=== PATIENT | male | born 1965 | race African-American/Black ===

== ENCOUNTER 2019-10-26 18:15 | Inpatient (IN) ==
[2019-10-26] MEDS ORDERED: ASPIRIN PO ONE (18:30)
[2019-10-26 18:47] LABS: BASO# 0.01 X1000 (0.0-0.2); BASO% 0.2 % (0.0-0.8); EOS# 0.01 X1000 (0.0-0.7); EOS% 0.2 % (0.0-10.0); HEMATOCRIT 48.2 % (42.0-52.0); HEMOGLOBIN 15.9 g/dL (14.0-18.0); IMM GRAN# 0.03 X1000 (0.0-0.04); IMM GRAN% 0.5 % (0.0-0.5); LYMPH# 1.44 X1000 (1.2-3.4); LYMPH% 22.3 % (20.5-51.1); MCH 30.3 PG (27-31); MCV 91.8 FL (81-99); MONO% 13.9 % (1.7-9.3); MPV 9.8 FL (7.4-10.4); NEUT# 4.08 X1000 (1.4-6.5); NEUT% 62.9 % (42.2-75.2); PLT 223 X1000 (130-400); RBC 5.25 XMIL (4.7-6.1); RDW 14.4 % (11.5-14.5); WBC 6.47 X1000 (4.8-10.8)
[2019-10-26 19:06] LABS: INR 0.94; PTT 25.2 Seconds (22.3-41.8)
[2019-10-26 19:09] LABS: AGAP 17; ALBUMIN 4.7 g/dL (3.5-5.0); ALKALINE PHOSPHATASE 54 U/L (32-122); BUN 15 mg/dL (8-22); CHLORIDE 98 mmol/L (98-107); CK PROFILE 36 U/L (24-204); COSMO 277; CREATININE 0.8 mg/dL (0.7-1.2); ESTIMATED GFR > 60; GLUCOSE 112 mg/dL (70-104); GOT 10 U/L (10-34); GPT 5 U/L (10-44); POTASSIUM 3.9 mmol/L (3.5-5.1); SODIUM 138 mmol/L (136-145); TCO2 23 mmol/L (25-35); TOTAL PROTEIN 7.2 g/dL (6.3-8.3)
--- NOTE | 2019-10-26 19:35 | Diag Imaging Result Doc PS360 ---
EXAM: CHEST-1 VIEW INDICATION: cp TECHNIQUE: One view COMPARISON: 10/05/2019 FINDINGS: Inspiration is somewhat suboptimal. There is suggestion of mild left basilar atelectasis. The right lung is clear. There is no discrete pleural fluid collection or pneumothorax. The cardiomediastinal silhouette and central vasculature are grossly unremarkable. IMPRESSION: Suggestion of mild left basilar atelectasis. No definite acute pathology, otherwise. Electronically signed by Neto Dowling 10/26/2019 7:33 PM
--- NOTE | 2019-10-26 20:16 | PROVIDER DOCUMENTATION ---
HPI-Chest Pain - General Chief Complaint: Chest Pain Stated Complaint: SOB/DIZZINESS Time Seen by Provider: 10/26/19 18:30 Allergies/Adverse Reactions: Patient Allergies Allergy/AdvReac Type Severity Reaction Status Date / Time No Known Allergies Allergy Verified 10/26/19 18:48 Home Medications: Home Medication List Medication Instructions Recorded Confirmed Last Taken Type Cyclobenzaprine [Flexeril] 10 mg PO PRN PRN 04/03/17 10/27/19 1 Week Ago History ~07/09/18 Omeprazole [Prilosec] 40 mg PO DAILY 04/03/17 10/27/19 07/11/18 History Telmisartan 80 mg PO DAILY 04/03/17 10/27/19 07/15/18 08:00 History Ibuprofen 800 mg PO Q8H PRN PRN #30 tab 10/05/19 10/27/19 Unknown Rx Bisoprolol/Hctz [Ziac 5/6.25 mg] 1 tab PO DAILY 10/27/19 10/27/19 Unknown History Clonazepam 0.5 mg PO DAILY PRN 10/27/19 10/27/19 Unknown History Meclizine [Antivert] 12.5 mg PO TID PRN 10/27/19 10/27/19 Unknown History Prednisone 20 mg PO DAILY 10/27/19 10/27/19 Unknown History - History of Present Illness-CP Nature of Presenting Problem: pt 54yo AAM w c/o intermittent sub sternal Cp w dyspnea on exertion for past month, pt states the pain became worse and more frequent over past few days. Location: reports: substernal Chest Pain Radiation: reports: no radiation Quality of Pain: reports: aching, pressure Severity in ED: moderate Onset/Duration: other (last month) Timing: still present, intermittent Context/Activities at Onset: reports: light activity Modifying Factors: improves with: nothing Nitro Today/Relief: no nitro taken today Aspirin Treatment Today: provided by ED Prior Chest Pain/Cardiac Workup: reports: other (has appointment with burr filer for similar episode over past month) Similar Symptoms Previously?: Yes Recently Seen Here or By Another Healthcare Provider: No Review of Systems - Adult - REVIEW OF SYSTEMS - ADULT Constitutional: reports: no symptoms reported Eyes: reports: no symptoms reported Ears, Nose, Mouth & Throat: reports: no symptoms reported Cardiovascular: reports: see HPI Respiratory: reports: see HPI Gastrointestinal: reports: no symptoms reported Genitourinary: reports: no symptoms reported Musculoskeletal: reports: no symptoms reported Integumentary: reports: no symptoms reported Neurological: reports: no symptoms reported Psychiatric: reports: no symptoms reported Endocrine: reports: no symptoms reported Hematologic/Lymphatic: reports: no symptoms reported Allergic/Immunologic: reports: no symptoms reported All Other Systems: Reviewed and Negative Past History - Adult - PAST MEDICAL HISTORY-ADULT Review of Records: reports: Old Records Reviewed, Nursing Assessment Review, Medications Reviewed Major Childhood Illnesses: reports: denies history Cardiovascular: reports: HTN, hyperlipidemia Respiratory: reports: denies history Gastrointestinal: reports: denies history - IMMUNIZATION STATUS Childhood Immunizations: See Nurse Assessment Flu Vaccine: See Nurse Assessment - FAMILY HISTORY Family History: reviewed, not pertinent - SOCIAL HISTORY Smoking: denies Substance Use: none/never Alcohol Use Frequency: never Physical Exam-General - PHYSICAL EXAM-ADULT Initial Vital Signs Reviewed: Yes - CONSTITUTIONAL General Appearance: appears well, alert, mild distress - EYES Eyes: PERRL/EOMI, pink conjunctivae. negative: sclera injected - HEAD, EARS, NOSE, MOUTH & THROAT HENMT: normocephalic/atraumatic, moist mucous membranes, normal ENT inspection - NECK Neck: non-tender, full range of motion, supple - RESPIRATORY Respiratory: chest non-tender, lungs clear, normal breath sounds - CARDIOVASCULAR Cardiovascular: normal peripheral pulses, regular rate, rhythm, no edema - GASTROINTESTINAL (ABDOMEN) Abdominal Exam: normal bowel sounds, non tender, soft - LYMPHATIC Lymphatic: no adenopathy - MUSCULOSKELETAL Back Exam: normal inspection Extremity: normal range of motion, non-tender - SKIN Integumentary: normal color, normal turgor, warm/dry - NEUROLOGIC Neurologic: grossly normal, no motor/sensory deficits - PSYCHIATRIC Psych/Mental Status: normal mood/affect, normal thought content, normal thought process, oriented x 3 - HEART Score HEART Score: History: Moderately Suspicious HEART Score: ECG: Non-Specific Repolarization Disturbance/LBBB/PM HEART Score: Age: 45-65 Years HEART Score: Risk Factors for Atherosclerotic Disease: 1 or 2 Risk Factors HEART Score: Troponin: < or = Normal Limit Total HEART Score:: 4 Progress - PLAN OF CARE/RESULTS Progress/Plan/Lab Results: Vital Signs - 8 hr 10/26/19 18:22 10/26/19 22:07 10/27/19 00:18 Temperature 98 F Pulse Rate 84 63 56 L Respiratory Rate 18 30 H Blood Pressure 126/97 174/102 O2 Sat by Pulse Oximetry 95 98 10/27/19 00:21 Temperature Pulse Rate 60 Respiratory Rate 19 Blood Pressure 146/97 O2 Sat by Pulse Oximetry 99 Laboratory Results - last 24 hr 10/26/19 10/26/19 10/26/19 18:40 18:40 18:40 WBC 6.47 RBC 5.25 Hgb 15.9 Hct 48.2 MCV 91.8 MCH 30.3 MCHC 33.0 RDW Std Deviation 14.4 Plt Count 223 MPV 9.8 Immature Gran % (Auto) 0.5 Neut % (Auto) 62.9 Lymph % (Auto) 22.3 [place] % (Auto) 13.9 H Eos % (Auto) 0.2 Baso % (Auto) 0.2 Immature Gran # (Auto) 0.03 Neut # (Auto) 4.08 Lymph # (Auto) 1.44 [place] # (Auto) 0.90 H Eos # (Auto) 0.01 Baso # (Auto) 0.01 PT INR PTT (Actin FS) D-Dimer, Quantitative Sodium 138 Potassium 3.9 Chloride 98 Carbon Dioxide 23 L Anion Gap 17 BUN 15 Creatinine 0.8 Estimated GFR/1.73 m2 > 60 BUN/Creatinine Ratio 19 Glucose 112 H Calculated Osmolality 277 Calcium 10.0 Total Bilirubin 1.40 H AST 10 ALT 5 L Alkaline Phosphatase 54 Creatine Kinase 36 Troponin T High Sens Skq-B-Plwgmbgppjv Pept 75 Total Protein 7.2 Albumin 4.7 Globulin 3.0 Albumin/Globulin Ratio 2.0 10/26/19 10/26/19 10/26/19 18:40 18:40 20:03 WBC RBC Hgb Hct MCV MCH MCHC RDW Std Deviation Plt Count MPV Immature Gran % (Auto) Neut % (Auto) Lymph % (Auto) [place] % (Auto) Eos % (Auto) Baso % (Auto) Immature Gran # (Auto) Neut # (Auto) Lymph # (Auto) [place] # (Auto) Eos # (Auto) Baso # (Auto) PT 13.0 INR 0.94 PTT (Actin FS) 25.2 D-Dimer, Quantitative 1.62 H Sodium Potassium Chloride Carbon Dioxide Anion Gap BUN Creatinine Estimated GFR/1.73 m2 BUN/Creatinine Ratio Glucose Calculated Osmolality Calcium Total Bilirubin AST ALT Alkaline Phosphatase Creatine Kinase Troponin T High Sens 12 Yic-T-Vnjihtkulvm Pept Total Protein Albumin Globulin Albumin/Globulin Ratio 10/26/19 22:23 WBC RBC Hgb Hct MCV MCH MCHC RDW Std Deviation Plt Count MPV Immature Gran % (Auto) Neut % (Auto) Lymph % (Auto) [place] % (Auto) Eos % (Auto) Baso % (Auto) Immature Gran # (Auto) Neut # (Auto) Lymph # (Auto) [place] # (Auto) Eos # (Auto) Baso # (Auto) PT INR PTT (Actin FS) D-Dimer, Quantitative Sodium Potassium Chloride Carbon Dioxide Anion Gap BUN Creatinine Estimated GFR/1.73 m2 BUN/Creatinine Ratio Glucose Calculated Osmolality Calcium Total Bilirubin AST ALT Alkaline Phosphatase Creatine Kinase Troponin T High Sens 11 Gql-Y-Justmignivr Pept Total Protein Albumin Globulin Albumin/Globulin Ratio Orders Category Date Time Status Admit - [facility] Routine AdmDCTranf 10/27/19 00:18 Active Activity - Bed Rest with BRP ORDERED Care 10/27/19 00:18 Active Cardiac Monitoring DIRECTED Care 10/26/19 18:30 Active Neurological Check PRN Care 10/27/19 00:18 Active Oxygen Therapy- ED Nursing DIRECTED Care 10/26/19 18:30 Active Resuscitation Status Routine Care 10/26/19 23:46 Ordered Saline Loc DIRECTED Care 10/27/19 00:18 Active Saline Loc NOW Care 10/26/19 18:30 Active Vital Signs Order ROUTINE Care 10/27/19 00:18 Active Z-Document. for Tele Applied ORDERED Care 10/27/19 00:18 Active Heart Healthy Diet Diet 10/27/19 00:18 Active CHEST-1 VIEW [RAD] Stat Exams 10/26/19 19:08 Completed CTA [CT ANGIOGRM PULMONARY ARTERIES] [CT] Stat Exams 10/26/19 21:06 Taken CBC WITH ELECTRONIC DIFF [HEME] Stat Lab 10/26/19 18:40 Completed CK PROFILE [SP CHEM] Stat Lab 10/26/19 18:40 Completed COMPREHENSIVE METABOLIC PANEL [CHEM] Stat Lab 10/26/19 18:40 Completed D-DIMER [COAG] Stat Lab 10/26/19 20:03 Completed PRO B-NATRIURETIC PEPTIDE Stat Lab 10/26/19 18:40 Completed PROTIME WITH INR [COAG] Stat Lab 10/26/19 18:40 Completed PTT [COAG] Stat Lab 10/26/19 18:40 Completed TROPONIN T HIGH SENSITIVITY Stat Lab 10/26/19 18:40 Completed TROPONIN T HIGH SENSITIVITY Stat Lab 10/26/19 22:23 Completed TROPONIN T HIGH SENSITIVITY Stat Lab 10/27/19 02:00 Uncollected Acetaminophen [Tylenol] Med 10/26/19 23:47 Discontinued 650 mg PO NOW ONE Acetaminophen [Tylenol] Med 10/27/19 00:18 Active 650 mg PO Q6H PRN PRN Albuterol 2.5MG/Ipratrop 0.5MG [Duoneb (A & A)] Med 10/27/19 00:18 Active 3 ml INH Q2H PRN PRN Aspirin Med 10/26/19 18:30 Discontinued 325 mg PO NOW ONE Ondansetron [Zofran] Med 10/27/19 00:18 Active 4 mg IV Q4H PRN PRN Aerosol Treatments Routine Oth 10/27/19 00:18 Active Aerosol Treatments Stat Oth 10/27/19 00:18 Active CP/SOB/Palp >45 yrs of Age Stat Oth 10/26/19 18:30 Ordered Oxygen Device Routine Oth 10/27/19 00:18 Active Telemetry [OM.EQ] Routine Oth 10/27/19 00:18 Active EKG [EKG] Stat Ther 10/26/19 18:30 Draft EKG [EKG] Stat Ther 10/26/19 22:09 Draft EKG [EKG] Stat Ther 10/27/19 02:00 Ordered Transfer/Admit Order [TRANSFER] Routine Transfer 10/26/19 23:46 Completed discussed with patient admission to the hospital for CP obs. pt agred with POC and verbalized understanding. Result Diagrams: 10/26/19 18:40 10/26/19 18:40 - XRAY 1 XRAY Study: Chest Impression: Normal - CT/MRI 1 CT Study: Angiogram Impression: Normal - CONSULTS/PCP/HOSPITALIST Notification #1 *Consult/PCP/Hospitalist*: marcelle Time Discussed: 00:00 Reason/Comments: admit to [facility] Consult Disposition: Admit Departure - Departure Date of Disposition Decision: 10/27/19 Time of Disposition Decision: 01:25 DIAGNOSIS: Chest pain Disposition: ADMITTED INPATIENT 09 Certified Medical Emergency: Emergent Condition: Stable Referrals and Follow-Ups: Estrellita Cleaning [Primary Care Provider] - - Critical Care Note This patient required my direct & personal management of CC.: No Attestation - Physician/ SOLIS Attestation Patient care was provided by Advanced Practice Provider:: Yes Advanced Practice Provider:: Nancy Pop Advanced Practice Provider documentation review:: The Mid-level provider documentation, treatment plan and medical decision making was reviewed by the physician who agrees with all treatment and medical decision making by the MLP. The physician spent face to face time with patient:: No Advanced Practice Provider documentation review:: Supervising physician onsite a nd consulted in the evaluation and care of this patient. The physician did not have a face to face encounter with the patient.
--- NOTE | 2019-10-26 21:55 | EKG Report ---
Test Performed on : 10/26/2019 6:33:34 PM Test Reason : cp Blood Pressure : / mmHG Vent. Rate : 073 BPM Atrial Rate : 073 BPM P-R Int : 122 ms QRS Dur : 106 ms QT Int : 382 ms P-R-T Axes : 063 -07 036 degrees QTc Int : 420 ms Sinus rhythm. with marked sinus arrhythmia. Voltage criteria for left ventricular hypertrophy Abnormal ECG When compared with ECG of 05-OCT-2019 03:11, (Unconfirmed) Criteria for Septal infarct are no longer present Unconfirmed Result
[2019-10-26] MEDS ORDERED: TYLENOL PO ONE (23:47)
--- NOTE | 2019-10-26 23:54 | EKG Report ---
Test Performed on : 10/26/2019 10:51:44 PM Test Reason : cp Blood Pressure : / mmHG Vent. Rate : 064 BPM Atrial Rate : 064 BPM P-R Int : 130 ms QRS Dur : 106 ms QT Int : 400 ms P-R-T Axes : 033 -05 025 degrees QTc Int : 412 ms Sinus rhythm. with marked sinus arrhythmia. Voltage criteria for left ventricular hypertrophy Abnormal ECG When compared with ECG of 26-OCT-2019 18:33, (Unconfirmed) No significant change was found Unconfirmed Result
[2019-10-27] MEDS ORDERED: ZOFRAN IV PRN (00:18)
--- NOTE | 2019-10-27 04:07 | EKG Report ---
Test Performed on : 10/27/2019 04:07:44 AM Test Reason : CP Blood Pressure : / mmHG Vent. Rate : 057 BPM Atrial Rate : 057 BPM P-R Int : 130 ms QRS Dur : 102 ms QT Int : 428 ms P-R-T Axes : 055 -06 023 degrees QTc Int : 416 ms Sinus bradycardia. with sinus arrhythmia. Voltage criteria for left ventricular hypertrophy Abnormal ECG When compared with ECG of 26-OCT-2019 22:51, (Unconfirmed) No significant change was found Unconfirmed Result
--- NOTE | 2019-10-27 05:08 | Diag Imaging Result Doc PS360 ---
EXAM: CT ANGIOGRM PULMONARY ARTERIES HISTORY: r/o PE TECHNIQUE: CT chest with intravenous contrast. Pulmonary arterial protocol with MIP images. COMPARISON: None. FINDINGS: There is normal opacification of the pulmonary arteries and their major branches. No aortic aneurysm or dissection. The heart is mildly prominent. No pleural effusions. No enlarged lymph nodes. Mild vascular distention. No infiltrates. No bronchiectasis. IMPRESSION: 1.No pulmonary emboli 2.Mild cardiac prominence with minimal vascular distention. 3.A preliminary report was given at 10:36 PM on 10/26/2019 This exam was performed using automated exposure control, adjustment of mA or kV according to patient size, and/or use of iterative reconstruction technique. Electronically signed by Joseph Ross 10/27/2019 5:05 AM
[2019-10-27] MEDS: DUONEB (A & A) INH PRN ×3 (08:47→19:51)
[2019-10-27] MEDS: ZIAC 5/6.25 MG PO SCH (09:01)
[2019-10-27] MEDS: TYLENOL PO PRN (14:40)
[2019-10-27] MEDS ORDERED: PNEUMOVAX 23 IM ONE (14:48)
[2019-10-27] MEDS ORDERED: NICODERM PATCH TD SCH (15:15)
--- NOTE | 2019-10-27 16:11 | Vascular Study Report ---
EXAM: Venous U/S Bilateral Legs HISTORY: elevated ddimer, dyspnea, CP TECHNIQUE: Bilateral lower extremity venous Doppler ultrasound COMPARISON: None. FINDINGS: Right: Normal flow in the veins of the right lower extremity. No thrombus identified. Normal compression. Left: Normal flow in the veins of the left lower extremity. No thrombus identified. Normal compression. IMPRESSION: No deep venous thrombosis identified Electronically signed by Joseph Ross 10/27/2019 4:09 PM
--- NOTE | 2019-10-27 17:06 | HISTORY AND PHYSICAL ---
CHIEF COMPLAINT: Intermittent chest pain, shortness of breath with a productive cough. HISTORY OF PRESENT ILLNESS: This is a 54-year-old gentleman with a prior history of hypertension who presents to the emergency room complaining of substernal chest pain with shortness of breath on exertion for the past month. He did state that over the past few days this is increased along with a productive cough. Chest x-ray revealed left basilar atelectasis prompting his visit to the emergency room. He denied any fevers or chills, any syncope or dizziness, any diaphoresis. PAST MEDICAL HISTORY: Hypertension, hyperlipidemia, anxiety, chronic dizziness, gastroesophageal reflux disease. PAST SURGICAL HISTORY: Hernia repair. FAMILY HISTORY: Cancer, hypertension, coronary artery disease. SOCIAL HISTORY: He is single. He denies any alcohol, tobacco, or illicit drug use. ALLERGIES: No known drug allergies. HOME MEDICATIONS: A list will be obtained by the nursing staff and once verified review and restart as appropriate. REVIEW OF SYSTEMS: Discussed with patient with pertinent positives stated in the HPI. He denied any syncope, any palpitations, any fevers or chills, any nausea, vomiting, diarrhea, constipation, black or bloody vomitus or stools, hematuria, dysuria, frequency urgency. PHYSICAL EXAMINATION: GENERAL: This is a 54-year-old gentleman who is sitting up on the stretcher in the emergency room in no distress. VITAL SIGNS: Blood pressure is 145/90 with a heart rate of 80, respirations are 20, temperature is 98.6 degrees with O2 saturations 97 to 99% on 2 L nasal cannula. HEENT: Pupils equal, round, react to light. EOMs are intact sclerae anicteric. Head is normocephalic, atraumatic. Mucous membranes moist. NECK: Supple with trachea midline. CARDIOVASCULAR: Regular rate and rhythm, S1 and S2 appreciated. He has no lower extremity edema. Calves are nontender bilateral with peripheral pulses palpable x4 extremities. PULMONARY: Breath sounds are clear. No increased work of breathing noted. Chest rises and falls symmetric respiration. GASTROINTESTINAL: Abdomen soft, nontender, nondistended with bowel sounds in all 4 quadrants. NEUROLOGIC: He is alert and oriented x3. SKIN: Warm and dry. LABS: WBC is 6 with hemoglobin 15.9, hematocrit 48.2 and platelets of 223,000. D-dimer is 1.62. Sodium 138, potassium 3.9, BUN 15, creatinine 0.8 with a glucose of 112. Troponin T high sensitivity 12, 11 and 10. Chest x-ray suggestion of mild left basilar atelectasis. No definite acute pathology. CTA pulmonary artery no pulmonary emboli, mild cardiac prominence with minimal vascular distention. No bronchiectasis, no infiltrates. ASSESSMENT AND PLAN: 1. Chest pain. 2. Elevated D-dimer in a patient with a CTA pulmonary negative for pulmonary embolus. 3. History of hypertension. 4. History of hyperlipidemia. 5. History of anxiety. PLAN: The patient will be admitted to the medical floor. He will be placed on telemetry. We will give supplemental oxygen as needed. Will obtain a bilateral lower extremity venous ultrasound. Identify his home medications and continue these as appropriate. Bilateral lower extremity Doppler, DuoNeb q.2 hours p.r.n. The patient was examined and plan was discussed with Dr. Murphy. Further treatments pending hospital course. Dictated by ADELINE Lee for Galen Murphy MD cc: ADELINE Lee MD
[2019-10-27] MEDS ORDERED: FLU VACCINE IM ONE (17:27)
--- NOTE | 2019-10-27 18:20 | HISTORY AND PHYSICAL ---
ADDENDUM: Patient seen and examined by myself. Full note dictated and discussed with nurse practitioner. Patient presented to the hospital with substernal chest pain, dyspnea on exertion. States it has been going on for the past month, but it has been worse over the past few days. He does have an elevated D-dimer at 1.6, but has a negative CT angiogram. We are going to admit the patient to the hospital for observation. Blood pressures are a little bit better. They were 174/102, currently 146/109. cc: Galen Murphy MD
[2019-10-28] MEDS ORDERED: FLEXERIL PO PRN (06:43)
[2019-10-28] MEDS ORDERED: KLONOPIN PO PRN (06:43)
[2019-10-28] MEDS ORDERED: ANTIVERT PO PRN (06:43)
[2019-10-28] MEDS ORDERED: MOTRIN PO PRN (06:43)
[2019-10-28] MEDS: DUONEB (A & A) INH PRN ×4 (07:24→19:20)
[2019-10-28] MEDS: CELEBREX PO SCH ×3 (07:43→20:53)
[2019-10-28] MEDS: PRILOSEC PO SCH ×2 (07:43→09:42)
[2019-10-28] MEDS: PROTONIX PO SCH (07:43)
[2019-10-28] MEDS: MICARDIS PO SCH ×2 (07:43→09:42)
[2019-10-28] MEDS: ZIAC 5/6.25 MG PO SCH ×2 (07:43→09:42)
[2019-10-28] MEDS: PREDNISONE PO SCH (07:43)
[2019-10-28] MEDS ORDERED: HYDROCHLOROTHIAZIDE PO SCH (09:00)
[2019-10-28] MEDS ORDERED: ZEBETA PO SCH (09:00)
[2019-10-28] MEDS: SOLU-MEDROL IV SCH ×2 (09:59→17:25)
[2019-10-28] MEDS: ROCEPHIN 1 GM in NS 50 ML IV SCH (10:00)
[2019-10-28] MEDS: TYLENOL PO PRN (15:11)
--- NOTE | 2019-10-28 19:35 | PROGRESS NOTE ---
DATE: 10/28/2019 SUBJECTIVE: The patient notes that his shortness of breath is a little bit improved. He is still having some mild chest pain, but denies any radiation. States it hurts when he takes a deep breath. PHYSICAL EXAM: Vital signs: Temperature 98.0 degrees, pulse 71, respiratory rate 18, BP 111/85. General: Patient is very pleasant. He is in no current respiratory distress. HEENT: Normocephalic. Neck: Supple. Cardiovascular: Regular rate. Chest: Decreased, but equal breath sounds. No current wheezing. No crackles. Abdomen: Soft, nondistended. Extremities: Moves all extremities. ASSESSMENT: 1. Chest pain. 2. Chronic obstructive pulmonary disease with likely exacerbation. 3. Hypertension. 4. Hyperlipidemia. PLAN: We are going to continue the patient in the hospital. We are going to add antibiotics, nebulizer, steroids and we will follow. Hopefully home over the next 1 or 2 days. cc: Galen Murphy MD
[2019-10-29] MEDS: SOLU-MEDROL IV SCH ×3 (01:08→16:36)
[2019-10-29] MEDS: PROTONIX PO SCH (06:11)
[2019-10-29] MEDS: ZIAC 5/6.25 MG PO SCH (08:09)
[2019-10-29] MEDS: MICARDIS PO SCH (08:10)
[2019-10-29] MEDS: ROCEPHIN 1 GM in NS 50 ML IV SCH ×2 (08:10→10:07)
[2019-10-29] MEDS: CELEBREX PO SCH ×2 (08:10→20:32)
[2019-10-29] MEDS: DUONEB (A & A) INH PRN ×4 (08:41→22:42)
[2019-10-29] MEDS: TYLENOL PO PRN (11:48)
--- NOTE | 2019-10-29 19:07 | PROGRESS NOTE ---
DATE: 10/29/2019 SUBJECTIVE: The patient notes that his shortness of breath is improving. Denies any fevers, chills. Denies chest pain. PHYSICAL EXAMINATION: Vital Signs: Reviewed. General: He is awake, alert, oriented. He is pleasant. HEENT: Normocephalic. Neck: Supple. Cardiovascular: Regular rate. Chest: Clear. Abdomen: Soft. Extremities: Moves all extremities. ASSESSMENT: 1. Chronic obstructive pulmonary disease with exacerbation. 2. Chest pain. 3. Hypertension. 4. Hyperlipidemia. PLAN: We will continue the patient in the hospital today. Continue to wean steroids. Hopefully he can improve and possibly be discharged home tomorrow if symptoms have improved. cc: Galen Murphy MD
[2019-10-30] MEDS: SOLU-MEDROL IV SCH ×3 (00:04→16:48)
[2019-10-30] MEDS: PROTONIX PO SCH (06:20)
[2019-10-30] MEDS: DUONEB (A & A) INH PRN ×2 (07:09→20:10)
--- NOTE | 2019-10-30 09:19 | Diag Imaging Result Doc PS360 ---
EXAM: CHEST-2 VIEWS HISTORY: hypoxia TECHNIQUE: PA and Lateral chest x-ray COMPARISON: 10/05/2019 FINDINGS: There is cardiomegaly. Slightly reduced lung volumes with mildly increased interstitial markings noted left base. There may be a trace left effusion. No focal consolidation is identified. No pneumothorax. IMPRESSION: Cardiomegaly. Mildly prominent interstitial markings left lower lobe. Possible trace left effusion. Electronically signed by Frannie Griggs 10/30/2019 9:19 AM
[2019-10-30] MEDS: ROCEPHIN 1 GM in NS 50 ML IV SCH (09:32)
[2019-10-30] MEDS: ZIAC 5/6.25 MG PO SCH (09:32)
[2019-10-30] MEDS: MICARDIS PO SCH (09:32)
[2019-10-30] MEDS: CELEBREX PO SCH ×2 (09:32→20:50)
[2019-10-31] MEDS: SOLU-MEDROL IV SCH (01:44)
--- NOTE | 2019-10-31 04:14 | PROGRESS NOTE ---
DATE: 10/30/2019 SUBJECTIVE: The patient notes that he is starting to feel better. He is still having some shortness of breath when he ambulates but this does not last as long. OBJECTIVE: Vital signs reviewed. Temperature 97.8 degrees, pulse 77, respiratory rate 18, BP 125/77.General: The patient is awake, alert. He is in no current respiratory distress, lying flatly in bed. HEENT: Normocephalic. Neck supple. Cardiovascular: Regular rate. Chest: Decreased but equal. No wheezing, no crackles. Abdomen soft, nondistended. Extremities: Moves all extremities. Neurologic: No changes. ASSESSMENT: 1. Chest pain. 2. Chronic obstructive pulmonary disease exacerbation. 3. Hypertension. 4. Hyperlipidemia. PLAN: We will continue Solu-Medrol, decrease to 40 q.12. Continue Rocephin, breathing treatments, oxygen, and hopefully home over the next day or two. cc: Galen Murphy MD MTDD
[2019-10-31] MEDS: PROTONIX PO SCH (06:04)
[2019-10-31] MEDS: DUONEB (A & A) INH PRN ×2 (07:23→20:48)
[2019-10-31] MEDS: CELEBREX PO SCH ×2 (09:43→20:24)
[2019-10-31] MEDS: OMNICEF PO SCH ×2 (09:43→20:24)
[2019-10-31] MEDS: ZIAC 5/6.25 MG PO SCH (09:43)
[2019-10-31] MEDS: PREDNISONE PO SCH (09:43)
[2019-10-31] MEDS: MICARDIS PO SCH (09:43)
--- NOTE | 2019-10-31 18:47 | ECHO REPORT ---
ORDER DATE: 10/31/2019 INDICATIONS: Dyspnea on exertion. FINDINGS: 1. Right atrium appears mildly enlarged at 4.4 cm. 2. Mild tricuspid regurgitation. RV systolic pressure of 29. 3. Normal RV size and systolic function. 4. Trace pulmonic insufficiency. 5. Severe left atrial enlargement with a volume index of 54. 6. No mitral valve prolapse. Mild mitral regurgitation. No evidence of mitral stenosis. 7. Normal LV size, end-diastolic dimension of 4.7 cm. Mild left ventricular hypertrophy with a posterior and interventricular septal wall thickness 1.2 cm each. Normal LV systolic function. Estimated EF of 60% with normal wall motion. 8. Aortic valve opens well. It is trileaflet. No evidence of stenosis or insufficiency. 9. Aorta appears normal visualized segments. 10. No pericardial effusion seen. 11. Suggestion of mild diastolic dysfunction with E to A reversal noted. cc: MD Galen Montalvo MD
--- NOTE | 2019-10-31 20:35 | PROGRESS NOTE ---
DATE: 10/31/2019 SUBJECTIVE: The patient notes that his chest pressure is improving. His shortness of breath is improving, although he is still having difficulty ambulating. OBJECTIVE: Vital Signs: Reviewed. Temp 97.8 degrees, pulse 81, respiratory rate 18, BP 116/87. General: Patient is in no current respiratory distress. He is still somewhat ill-appearing and appears short of breath. HEENT: Normocephalic. Neck: Supple. Cardiovascular: Regular rate. Chest: Decreased but equal. No wheezing, no crackles. Abdomen: Soft, nondistended. Extremities: Moves all extremities. Neurologic: No changes. ASSESSMENT: 1. Chest pain secondary to chronic obstructive pulmonary disease exacerbation. 2. Chronic obstructive pulmonary disease exacerbation. 3. Hyperlipidemia. 4. Chronic anxiety, which is certainly contributing to his current issues. PLAN: We will continue patient in the hospital. Recheck his labs in the a.m. Continue to hold his fluids. His most recent chest x-ray showed prominent interstitial markings. We will stop his Solu-Medrol, change prednisone. If he tolerates hopefully home. cc: Galen Murphy MD
[2019-11-01] MEDS: DUONEB (A & A) INH PRN ×2 (08:01→11:52)
[2019-11-01] MEDS: MICARDIS PO SCH (10:15)
[2019-11-01] MEDS: ZIAC 5/6.25 MG PO SCH (10:15)
[2019-11-01] MEDS: OMNICEF PO SCH (10:16)
[2019-11-01] MEDS: PROTONIX PO SCH (10:16)
[2019-11-01] MEDS: CELEBREX PO SCH (10:16)
[2019-11-01] MEDS: PREDNISONE PO SCH (10:16)
[2019-11-01 10:31] VITALS: BP 159/78
--- NOTE | 2019-11-02 05:33 | DISCHARGE SUMMARY ---
ADMISSION DATE: 10/27/2019 DISCHARGE DATE: 11/01/2019 DISCHARGE DIAGNOSES: 1. Chest pain, resolved. 2. Chronic obstructive pulmonary disease with mild exacerbation. 3. Hypertension. 4. Hyperlipidemia. 5. Anxiety. 6. Diastolic dysfunction. CONSULTATIONS: None. PROCEDURES: Echo. BRIEF HOSPITAL COURSE: The patient is a 54-year-old male who presented to the hospital secondary to increased work of breathing, shortness of breath and chest pain. Symptoms worsened with ambulation. He did have an echo while he was in the hospital which demonstrated diastolic dysfunction. Otherwise, his symptoms improved. He was placed on steroids, antibiotics and breathing treatments. On discharge, he is awake, alert. He is in no distress. DISPOSITION: Patient will be discharged home. He will follow up outpatient with treatment facility of choice. We discharged him with Medrol Dosepak as well as antibiotics and nebulized treatments. TIME SPENT: Greater than 30 minutes was spent in total care. cc: Galen Murphy MD
--- NOTE | 2019-11-02 15:25 | DISCHARGE SUMMARY ---
ADMISSION DATE: 10/27/2019 DISCHARGE DATE: 11/01/2019 ADMISSION DIAGNOSES: 1. Chest pain. 2. Elevated D-dimer. 3. History of hypertension. 4. History of hyperlipidemia. 5. History of anxiety. DISCHARGE DIAGNOSES: 1. Chest pain secondary to chronic obstructive pulmonary disease exacerbation. 2. Chronic obstructive pulmonary disease exacerbation. 3. Hyperlipidemia. 4. Chronic anxiety which is contributing to his current issues. CONSULTATIONS: None. SURGERIES AND PROCEDURES: None. HOSPITAL COURSE: On 10/26/2019, Mr. Juan Luis Thomas, a 54-year-old male with a history of hypertension and unreported COPD, along with anxiety, presented with complaints of intermittent chest pain, shortness of breath with a productive cough. Chest x-ray reveals that there was a left basilar atelectasis, but denied any fever, chills, syncope or dizziness. No diaphoresis. He is admitted to the medical floor. Placed on oxygen. He did have elevated D-dimer, but pulmonary CTA was negative for PE. He had venous ultrasound which was also negative for DVT. Started on nebulizers and antibiotics. Over time, his shortness of breath is slightly improved, but continued to have some mild chest pain. No radiation, just hurt when he would take a deep breath, and on a daily basis had improvement, was stable for discharge home today. Mostly his anxiety is probably what is keeping him here longer secondary to the shortness of breath he would have with this anxiety. DISCHARGE VITAL SIGNS: Temperature 97.7 degrees, heart rate 72, respiratory rate 18, blood pressure 159/78, O2 saturation 100% on room air. DISCHARGE LAB DATA: The only labs he has is the ones that were drawn on his admission, which was white blood cell count 6000, hemoglobin 15, hematocrit 48, platelet count 223. INR 0.94. D-dimer was 1.62. Sodium 138, potassium 3.9, BUN 15, creatinine 0.8, glucose 112, calcium 10, bilirubin 1.40, AST 10, ALT 5, CK 36. Troponin was 10. ProBNP was 75. Albumin is 4.7. PERTINENT IMAGING: On the , chest x-ray has suggestion of mild left basilar atelectasis. Pulmonary arteriogram: No pulmonary emboli, mild cardiac prominence with minimal vascular distention and venous ultrasound negative for DVT. Then on the , a chest x-ray showed cardiomegaly, mild prominent interstitial markings of the left lower lobe and possible trace left pleural effusion. Had an echocardiogram on the . EF was 60%. There was no pericardial effusion. There was suggestion of mild diastolic dysfunction. Otherwise, there was mild left LVH. EKG: Sinus rhythm, rate 73 is on the 11. Another one on the was sinus rhythm, rate 64, and QTc 412, and EKG on the sinus bradycardia with sinus rhythm, rate 57, QTc was 416. DISCHARGE MEDICATIONS: New medications on discharge were: 1. Ultrasonic nebulizer 3 to 4 times a day p.r.n. 2. Albuterol Atrovent every 4 hours p.r.n. 3. Ibuprofen 800 mg p.o. every 8 hours p.r.n. 4. Omnicef 300 mg p.o. twice daily for 4 more days. 5. Prednisone taper. 6. Ziac which is bisoprolol/hydrochlorothiazide 5/6.25 one tablet p.o. daily. Medications he has been taking at home: 1. Telmisartan 80 mg p.o. daily. 2. Protonix 40 mg p.o. daily. 3. Looks like he is on Prilosec as well. 4. Antibiotic ointment with hydrocortisone in it, suspension actually in the ears. 5. Flexeril 10 mg p.o. p.r.n. 6. Clonazepam 0.5 mg p.o. daily. 7. Celecoxib 100 mg p.o. twice daily. 8. Antivert 12.5 mg p.o. t.i.d. p.r.n. 9. Tylenol 3 once p.o. every 8 to 12 hours p.r.n. PHYSICIAN FOLLOWUP: Dr. Estrellita Cleaning. DISCHARGE ACTIVITY: As tolerated. DISCHARGE DIET: Heart healthy. DISCHARGE INSTRUCTIONS: If her condition changes, contact physician and/or return to the emergency department. Changes may include, but are not limited to shortness of breath, increased fatigue, excessive bleeding, unexplained weight loss or gain, unmanageable pain, signs or symptoms of infection. DISCHARGE DISPOSITION: Home. Dictated by ADELINE Ortega for Galen Murphy MD cc: ADELINE Ortega MD
== END 2019-11-01 13:30 | disposition home or self-care (01) | DRG 192 ==
LOC: P.MEDSURG 18:15 → P.ED 18:15
PROVIDERS: ATTEND Family Medicine